=== PATIENT | female | born 1950 | race American Indian/Alaskan Native ===

== ENCOUNTER 2020-10-01 10:07 | Outpatient (CLI) | payer MEDICARE ==
--- NOTE | 2020-10-02 16:42 | Mammography Report ---
DIGITAL SCREENING MAMMOGRAM WITH CAD, 10/02/2020 CLINICAL INFORMATION / INDICATION: Routine screening mammography. Right mastectomy. TECHNIQUE: Digital left 2D mammography was obtained in the craniocaudal and mediolateral oblique pro jections. This examination was interpreted with the benefit of Computer-Aided Detection analysis. COMPARISON: 09/18/19, 09/05/18 FINDINGS: Breast Density: There are scattered areas of fibroglandular density. No dominant mass, suspicious calcifications, or architectural distortion in the left breast. Left breast biopsy marker is unchanged. IMPRESSION: No mammographic evidence of malignancy. Follow up recommendation: Routine yearly BI-RADS Category 2: Benign. A "normal" or negative report should not discourage follow up or biopsy of a clinically significant f inding. A written summary of these findings will be mailed to the patient. The patient will be entered into a mammography reporting system which will generate a reminder letter for the patient's next appointmen t at the appropriate interval. The [employer] recommends yearly mammograms starting at age 40 and continuing as l shi as a woman is in good health. Breast MRI is recommended for women with an approximate 20-25% or greater lifetime risk of breast cancer, including women with a strong family history of breast or ova ashley cancer or who have been treated for Hodgkin's disease. Signer Name: Prasanna Gutierrez MD Signed: 10/02/2020 4:37 PM Workstation Name: [id number]
== END 2020-10-01 10:08 | disposition home or self-care (01) ==
LOC: SPVWC 10:07
PROVIDERS: ATTEND Surgery
DX: Z12.31 Encounter for screening mammogram for malignant neoplasm of breast (principal)